=== PATIENT | female | born 1955 | race Hispanic/Latino ===

== ENCOUNTER 2022-06-21 09:49 | Day surgery (SDC) | payer MEDICARE, OTHER ==
[~2022-06-21] VITALS: Ht 149.9 cm; Wt 45.4 kg
[~2022-06-21 09:49] MED LIST: ALENDRONATE10 MG PO; ALENDRONATE70 MG PO; BIOTIN1 MG PO; CALCIUM500 M2 PO; FARXIGA5 MG PO; GABAPENTIN300 M2 PO; GABAPENTIN300 MG PO; GLYB/METFOR1 PO; LIPITOR10 M1 PO; LIPITOR40 M1 PO; METFORMIN HCL1000 MG PO; NAPROXEN EC500 MG PO; NOVOLOG MIX100 U/ML SC; OMEPRAZOLE10 MG PO; PANTOPRAZOLE SO40 M1 PO; PERCOCET 5/321 COMBO PO; PIOGLITAZONE HC45 MG; SERTRALINE HCL100 MG PO; SERTRALINE HCL50 MG PO; TIZANIDINE2 MG PO; VITAMIN D1000 UNIT PO; [UNRECOGNIZED DRUG - OTHER]
[2022-06-21] MEDS ORDERED: PERCOCET 5/321 COMBO PO (13:58)
[2022-06-21 15:17] VITALS: BP 126/55
== END 2022-06-21 15:49 | disposition home or self-care (01) ==
LOC: ORM 09:49
PROVIDERS: ATTEND Surgery
PROC: 0YU50JZ Supplement Right Inguinal Region with Synthetic Substitute, Open Approach (ICD-10-PCS; principal; 2022-06-21)
DX: K40.90 Unilateral inguinal hernia, without obstruction or gangrene, not specified as recurrent (principal); E11.40 Type 2 diabetes mellitus with diabetic neuropathy, unspecified; K21.9 Gastro-esophageal reflux disease without esophagitis; Z79.84 Long term (current) use of oral hypoglycemic drugs
CPT/HCPCS: C9290; J0131

== ENCOUNTER 2024-07-10 10:31 | Emergency (ER) | payer MEDICARE, OTHER ==
[~2024-07-10] VITALS: Ht 134.6 cm; Wt 45.0 kg
[2024-07-10 13:23] VITALS: BP 127/63
== END 2024-07-10 13:35 | disposition home or self-care (01) ==
LOC: ED 10:31
DX: S00.83XA Contusion of other part of head, initial encounter (principal); M25.511 Pain in right shoulder; E11.9 Type 2 diabetes mellitus without complications; W19.XXXA Unspecified fall, initial encounter; Z79.4 Long term (current) use of insulin; Z79.84 Long term (current) use of oral hypoglycemic drugs